=== PATIENT | male | born 1955 | race Asian ===

== ENCOUNTER 2018-10-10 15:32 | Emergency (ER) | payer OTHER ==
[~2018-10-10] VITALS: Ht 170.2 cm; Wt 64.0 kg
[2018-10-10 15:34] VITALS: Ht 170.2 cm; Wt 64.0 kg
[2018-10-10 17:22] LABS: BASOPHIL % 0.4 % (0-2); PLATELET COUNT 285 x10^3mcL (130-400); RED CELL DISTRIBUTION WIDTH 14.1 % (11.5-14.5)
[2018-10-10 17:31] LABS: CALCIUM 8.1 mg/dL (8.5-10.1); CARBON DIOXIDE 30.8 mmol/L (21-32); CHLORIDE SERUM 102 mmol/L (98-107); CREATININE SERUM 1.1 mg/dL (0.7-1.3); GFR1 > 60 mL/min; GLUCOSE SERUM 101 mg/dL (74-106); POTASSIUM SERUM 4.3 mmol/L (3.5-5.1); SODIUM SERUM 143 mmol/L (136-145)
[2018-10-10 17:35] LABS: ALKALINE PHOSPHATASE 91 U/L (46-116); ALT/SGPT 49 U/L (16-63); AST/SGOT 32 U/L (15-37); BILIRUBIN TOTAL 0.25 mg/dL (0.20-1.00); TOTAL PROTEIN, SERUM 7.5 g/dL (6.4-8.2)
[2018-10-10 17:39] LABS: ALBUMIN 3.1 g/dL (3.4-5.0)
[2018-10-10 19:17] VITALS: BP 143/70
== END 2018-10-10 19:17 | disposition home or self-care (01) ==
LOC: ED 15:32
PROVIDERS: Emergency Medicine
DX: K59.00 Constipation, unspecified (principal); Z98.890 Other specified postprocedural states
CPT/HCPCS: 36415; J1885; Q0092